=== PATIENT | male | born 1980 | race Caucasian/White ===

== ENCOUNTER 2017-03-02 15:13 | Emergency (ER) | payer OTHER ==
[2017-03-02 15:36] VITALS: BP 119/80
--- NOTE | 2017-03-02 16:39 | Cat Scan Report ---
CT head without contrast: Headache; dizziness. Axial images demonstrate normal cerebral anatomy. No focal or generalized lesion. There is no hemorrhage and no extracerebral collection. The visualized bones and paranasal sinuses are normal. Impressions: Normal exam.
[2017-03-02] MEDS ORDERED: NORCO 5/325 PO ONE (19:03)
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
== END 2017-03-02 20:50 | disposition home or self-care (01) ==
LOC: ED 15:13
DX: S80.02XA Contusion of left knee, initial encounter (principal); S06.0X9A Concussion with loss of consciousness of unspecified duration, initial encounter; V49.49XA Driver injured in collision with other motor vehicles in traffic accident, initial encounter; Y93.9 Activity, unspecified; Y92.9 Unspecified place or not applicable; Y99.9 Unspecified external cause status
CPT/HCPCS: 70450

== ENCOUNTER 2017-08-05 11:50 | Emergency (ER) | payer SELFPAY ==
[2017-08-05 11:59] VITALS: BP 141/76
[2017-08-05] MEDS ORDERED: ASPIRIN PO ONE (11:59)
[2017-08-05] MEDS ORDERED: ASPIRIN ONE (12:00)
== END 2017-08-05 12:00 | disposition left against medical advice (07) ==
LOC: ED 11:50
DX: Z53.21 Procedure and treatment not carried out due to patient leaving prior to being seen by health care provider (principal)
CPT/HCPCS: 93005; 93010